=== PATIENT | female | born 2000 | race Two or more races ===

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

== ENCOUNTER 2024-02-19 05:07 | Emergency (ER) | payer BC ==
[~2024-02-19] VITALS: Ht 157.5 cm; Wt 59.0 kg
[2024-02-19 06:40] LABS: PREGNANCY TEST URINE QUAL NEGATIVE (NEGATIVE)
[2024-02-19] MEDS ORDERED: BENZONATATE 100 MG CAPSULE PO ONE (07:12)
[2024-02-19] MEDS: BENZONATATE 100 MG CAPSULE PO ONE (07:19)
[2024-02-19] MEDS ORDERED: KETOROLAC TROMETHAMINE INJ 30 MG/ML VIAL ONE (07:29)
[2024-02-19] MEDS: KETOROLAC TROMETHAMINE INJ 30 MG/ML VIAL IM ONE (07:41)
[2024-02-19] MEDS ORDERED: BENZ-13 PO (08:49)
[2024-02-19 08:55] VITALS: BP 114/78; TEMP 98.4; O2SAT 98
== END 2024-02-19 08:57 | disposition home or self-care (01) ==
LOC: ER 05:10
DX: R05.9 Cough, unspecified (principal); R09.89 Other specified symptoms and signs involving the circulatory and respiratory systems; H92.02 Otalgia, left ear; Z20.822 Contact with and (suspected) exposure to COVID-19
CPT/HCPCS: 99284; 71045; 87426; 96372; 87804 ×2; 84703; J1885